=== PATIENT | male | born 1975 | race Caucasian/White ===

== ENCOUNTER 2017-06-29 21:30 | Emergency (ER) | payer SELFPAY ==
[~2017-06-29] VITALS: Ht 167.6 cm; Wt 74.8 kg
[2017-06-29] MEDS ORDERED: METFORMIN HCL1000 MG PO (21:42)
== END 2017-06-29 22:52 | disposition home or self-care (01) ==
LOC: ED 21:30
DX: K59.00 Constipation, unspecified (principal); E11.9 Type 2 diabetes mellitus without complications; Z79.84 Long term (current) use of oral hypoglycemic drugs
CPT/HCPCS: 99282

== ENCOUNTER 2019-12-28 16:44 | Emergency (ER) | payer OTHER ==
[~2019-12-28] VITALS: Ht 167.6 cm; Wt 74.8 kg
[~2019-12-28 16:44] MED LIST: METFORMIN HCL1000 MG PO
[2019-12-28] MEDS ORDERED: NITROSTAT0.3 MG (17:00)
--- NOTE | 2019-12-29 12:10 | EKG ---
[facility] [address] [facility] [place], [place] [address] Signed Normal sinus rhythm Possible Left atrial enlargement Borderline ECG No previous ECGs available Confirmed by LAYLA RODRIGUEZ DO ([id number]) on 12/29/2019 12:10:44 PM Electronically Signed By: LAYLA RODRIGUEZ DO 12/29/19 1210 PATIENT NAME: DEBORAH RAYGOZA Electrocardiogram DATE OF : 71 PHYSICIAN: LAYLA RODRIGUEZ DO REPORT #: [id number] REPORT IS CONFIDENTIAL AND NOT TO BE RELEASED WITHOUT AUTHORIZATION
--- NOTE | 2019-12-29 12:12 | EKG ---
[facility] [address] [facility] [place], [place] [address] Signed Normal sinus rhythm Possible Left atrial enlargement Borderline ECG When compared with ECG of 28-DEC-2019 16:54, (Unconfirmed) No significant change was found Confirmed by LAYLA RODRIGUEZ DO ([id number]) on 12/29/2019 12:12:03 PM Electronically Signed By: LAYLA RODRIGUEZ DO 12/29/19 1212 PATIENT NAME: DEBORAH RAYGOZA CONG Electrocardiogram DATE OF : 71 PHYSICIAN: LAYLA RODRIGUEZ DO REPORT #: [id number] REPORT IS CONFIDENTIAL AND NOT TO BE RELEASED WITHOUT AUTHORIZATION
== END 2019-12-28 21:43 | disposition home or self-care (01) ==
LOC: ED 16:44
DX: R07.89 Other chest pain (principal); E11.65 Type 2 diabetes mellitus with hyperglycemia; Z79.84 Long term (current) use of oral hypoglycemic drugs; Z79.899 Other long term (current) drug therapy
CPT/HCPCS: 71045; 80053; 83735; 84484; 85025; 93005; 93010; 99285-25